=== PATIENT | female | born 1980 | race Two or more races ===

== ENCOUNTER 2023-10-23 20:12 | Emergency (ER) | payer OTHER ==
[~2023-10-23] VITALS: Ht 165.1 cm; Wt 68.0 kg
[2023-10-23] MEDS ORDERED: LIDOCAINE HCL 1% 10ML VIAL ONE (21:02)
[2023-10-23] MEDS ORDERED: HYDROCORTISONE SODIUM SUCC/PF 100 MG VIAL ONE (21:09)
[2023-10-23] MEDS ORDERED: CLINDAMYCIN PHOSPHATE 150 MG/ML (300mg) IV ONE (21:45)
[2023-10-23] MEDS ORDERED: HYDROCORTISONE SODIUM SUCC/PF 100 MG VIAL IM ONE (21:45)
[2023-10-23] MEDS ORDERED: OxyCODONE HCL/APAP UD (PERCOCET) PO ONE (21:45)
[2023-10-23] MEDS ORDERED: TETANUS & DIPHTHERIA TOX,ADULT 0.5 ML VIAL IM ONE (21:45)
[2023-10-23] MEDS ORDERED: LIDOCAINE HCL 1% 10ML VIAL IJ ONE (21:45)
[2023-10-23] MEDS ORDERED: ONDANSETRON HCL 2 MG/ML VIAL IV ONE (21:45)
[2023-10-23] MEDS ORDERED: ONDANSETRON HCL 2 MG/ML VIAL ONE (21:46)
[2023-10-23] MEDS ORDERED: CLINDAMYCIN PHOSPHATE 150 MG/ML (300mg) ONE (21:46)
[2023-10-23] MEDS ORDERED: TETANUS DIPHTHERIA TOX. ADSOR 5 ML VIAL IM ONE (21:47)
[2023-10-23] MEDS ORDERED: LIDOCAINE HCL 1%/EPINEPHRINE 20ML VIAL IJ ONE ×2 (21:54→22:00)
== END 2023-10-23 22:35 | disposition home or self-care (01) ==
LOC: ER 20:14
DX: S62.609A Fracture of unspecified phalanx of unspecified finger, initial encounter for closed fracture (principal); S61.309A Unspecified open wound of unspecified finger with damage to nail, initial encounter; X58.XXXA Exposure to other specified factors, initial encounter; Y93.89 Activity, other specified; Y92.89 Other specified places as the place of occurrence of the external cause; Y99.8 Other external cause status